=== PATIENT | male | born 1940 | race Caucasian/White ===

== ENCOUNTER → 2020-03-04 10:55 | Outpatient (BNVA) | payer OTHER, SELFPAY | PROVIDERS: PCP Physician Assistant; Visit Provider Urology | DX: Z76.89 Persons encountering health services in other specified circumstances (principal) ==

== ENCOUNTER 2020-03-23 07:28 | Day surgery (SDC) | payer OTHER, SELFPAY ==
[2020-03-20 14:18] VITALS: BMI 27.6
--- NOTE | 2020-03-20 14:32 | P.CONAN_ITS ---
Documented by User: Florencia Pyle 03/20/20 14:33 HPI - Anesthesia Eval Consult details Narrative: 79yo M for Cystoscopy PMFSH Past Medical History Medical History Cancer Elevated cholesterol Herniated disc, cervical HTN (hypertension) Sleep apnea Thyroid disease Surgical History Surgical History History of ankle surgery History of thyroid surgery Hx of colonoscopy with polypectomy Social History Social History Smoking Status: Former smoker Smoking Quit Date: 38 yrs ago Use of substances other than those prescribed or required for medical reasons: No Advance Directives: No Advance Directives Information Provided: No Advance Directives on File: No (on file with [facility]) Meds Allergies Allergy/AdvReac Type Severity Reaction Status Date / Time Sulfa (Sulfonamide Allergy Unknown UNK Unverified 12/26/19 19:46 Antibiotics) [SULFA (SULFONAMIDE ANTIBIOTICS)] sulfur Allergy Unknown Verified 11/28/19 00:00 Home Medications Medication Instructions Recorded Confirmed Type atenolol 25 mg tablet 25 mg PO DAILY 03/04/20 History diazepam 2 mg tablet 2 mg PO DAILY 03/04/20 History finasteride 5 mg tablet 5 mg PO DAILY 03/04/20 History gabapentin 100 mg capsule 100 mg PO TID 03/04/20 History hydrochlorothiazide 25 mg tablet 25 mg PO DAILY 03/04/20 History levothyroxine 50 mcg tablet 50 mcg PO DAILY 03/04/20 History lorazepam 1 mg tablet mg PO 03/04/20 History oxybutynin chloride 5 mg 5 mg PO DAILY 03/04/20 History tablet,extended release 24 hr simvastatin 40 mg tablet mg PO 03/04/20 History tamsulosin 0.4 mg capsule 0.4 mg PO DAILY 03/04/20 History testosterone 1 % (50 mg/5 gram) TOPICAL 03/04/20 History transdermal gel packet Exam Exam Date and Time: March 20, 2020 1432 Height,Weight and Vital Signs: Height 5 ft 10 in Weight 87.543 kg Assessment and Plan Assessment Anesthesia Assessment: Chart Reviewed Documented by User: Jose J Polanco 03/23/20 09:36 [facility] Past Medical History Medical History Cancer Elevated cholesterol Herniated disc, cervical HTN (hypertension) Sleep apnea Thyroid disease Surgical History Surgical History History of ankle surgery History of thyroid surgery Hx of colonoscopy with polypectomy Social History Social History Smoking Status: Former smoker Smoking Quit Date: 38 yrs ago Use of substances other than those prescribed or required for medical reasons: No Advance Directives: No Advance Directives Information Provided: No Advance Directives on File: No (on file with [facility]) Meds Allergies Allergy/AdvReac Type Severity Reaction Status Date / Time Sulfa (Sulfonamide Allergy Unknown UNK Unverified 12/26/19 19:46 Antibiotics) [SULFA (SULFONAMIDE ANTIBIOTICS)] sulfur Allergy Unknown Verified 11/28/19 00:00 Home Medications Medication Instructions Recorded Confirmed Type atenolol 25 mg tablet 25 mg PO DAILY 03/04/20 History diazepam 2 mg tablet 2 mg PO DAILY 03/04/20 History finasteride 5 mg tablet 5 mg PO DAILY 03/04/20 History gabapentin 100 mg capsule 100 mg PO TID 03/04/20 History hydrochlorothiazide 25 mg tablet 25 mg PO DAILY 03/04/20 History levothyroxine 50 mcg tablet 50 mcg PO DAILY 03/04/20 History lorazepam 1 mg tablet mg PO 03/04/20 History oxybutynin chloride 5 mg 5 mg PO DAILY 03/04/20 History tablet,extended release 24 hr simvastatin 40 mg tablet mg PO 03/04/20 History tamsulosin 0.4 mg capsule 0.4 mg PO DAILY 03/04/20 History testosterone 1 % (50 mg/5 gram) TOPICAL 03/04/20 History transdermal gel packet Exam Airway Mallampati Class: II TM Dist: >3cm Neck ROM: Full Partial: Upper Loose/Missing/Broken Teeth: No Heart: rrr+s1s2 Lungs: cta b/l Assessment and Plan Assessment Anesthesia Assessment: Anesthesia Plan Discussed, PAT Visit and Chart Reviewed Final Anesthetic Review NPO: Yes ASA Class: III Final Preanesthetic Review: No Changes in Pt Med Stat, Meds/Allgs Chart Reviewed, Consent Obtained/Reviewed and Anes Risks/Benef Reviewed Patient Risk: Intermediate Procedure Risk: Low Assessment/Block/Sedation in SS: Assess/Block/Sedation-SS Anesthetic Plan Anesthetic Plan: GA Disposition: Standard PACU
[2020-03-23] VITALS (8 sets, daily range): BP systolic 127–156; BP diastolic 69–79; PULSE 62–71; RESP 14–20; TEMP 36.6–36.9; O2SAT 99–100
[2020-03-23] MEDS: Lactated Ringers 1,000 ML 100 ML IVCONT (08:27)
--- NOTE | 2020-03-23 08:34 | MHC.SHP ---
Pre-Procedural Eval Section B Chief Complaint: Begin Prostatic Hyperplasia Details of Present Illness: Urinary tract infection, Relevant Family History (Specify if Yes): No Relevant Social History: None Present Medications: see Short Stay Collaborative assessment Medical History: Significant History Allergies: Allergies Allergy/AdvReac Type Severity Reaction Status Date / Time Sulfa (Sulfonamide Allergy Unknown UNK Unverified 12/26/19 19:46 Antibiotics) [SULFA (SULFONAMIDE ANTIBIOTICS)] sulfur Allergy Unknown Verified 11/28/19 00:00 Review of Systems Sugical H&P ROS: Negative: Constitution, Cardiovascular, Respiratory, Neurological, Psychiatric, Hem-Onc, Allergic/Immunologic, Gastrointestinal, Genitourinary, Musculoskeletal, Integumentary, Endocrine and Eyes/Ears/Nose/Throat Exam Surgical H&P Exam: Normal: HEENT, Normal: Heart, Normal: Lungs, Normal: Extremities, Normal: Abdomen, Normal: Skin and Normal: Neurological Plan Diagnosis/Plan: Unchanged Patient has been examined and remains a candidate for the planned procedure
[2020-03-23] MEDS: levoFLOXacin 500 MG TABLET PO (09:39)
--- NOTE | 2020-03-23 10:35 | PM.OP ---
Brief Operative Note Date of Service: 03/23/20 Pre-op diagnosis: Prostate calcifications Post-op diagnosis: same Procedure: TURP Implants: Fong catheter Surgeon: Da Samayoa MD Anesthesia: GLMA Estimated blood loss (mL): 0 Pathology: other (Prostate) Condition: stable Disposition: same day
--- NOTE | 2020-03-23 10:39 | P.OP_ITS ---
Operative Note Operative Note Date of Service: 03/23/20 Narrative: PreOperative Diagnosis: Recurring UTI, Post Operative Diagnosis: Prostatic calcifications Procedure: Cystoscopy, resection prostatic calcifications Surgeon: Dr Da Samayoa Anesthesia: General Indications for procedure: This is a 71-year-old male. Underwent laser prostate procedure at the beginning 2019. Subsequently developed recurrent UTI and unable to scope in office. Suggested cystoscopy in operating room with any other necessary procedures. Suspicion for prostatic calcifications following surgery Procedure: After informed consent was verified the patient was brought to the operating room and placed in a supine position. anesthesia was administered per protocol. Patient was placed in modified dorsal lithotomy position and prepped and draped in sterile fashion. Safety pause time-out was observed. Antibiotics have been given. Twenty-one Mauritian cystoscope inserted per urethra. No abnormality noted in the anterior posterior urethra. As we entered the area of the prostate there was decrease in visibility. There was reactive tissue particularly calcifications a nonhealing area on the right side of the prostatic fossa. The area was gently resected. Fulguration was performed to edematous past the prostate that had hyperemia with sources of hematuria. When this was completed the bladder was emptied. An 18 Mauritian Fong catheter was placed. Belladonna suppository placed for pain management. He was transferred in stable condition to the recovery area with Fong catheter in place Pathology: Prostate Drains: Eighteen Mauritian Fong catheter
--- NOTE | 2020-03-23 13:50 | HO.POSTANES ---
Post Anesthesia Evaluation Post Anesthesia Evaluation Vital Signs: Vital Signs Temp Pulse Resp BP Pulse Ox 03/23/20 11:59 67 20 156/79 H 100 03/23/20 11:28 98 F 66 20 146/73 H 99 03/23/20 11:11 71 20 145/77 H 100 03/23/20 10:57 66 18 142/75 H 100 03/23/20 10:53 62 16 136/76 100 03/23/20 10:48 64 16 132/69 100 03/23/20 10:43 98.1 F 63 14 127/71 100 03/23/20 07:54 98.4 F 62 16 138/70 99 Anesthesia: General Mental Status: Awake Pain Control: Satisfactory Nausea/Vomiting: None Hydration: Adequate Anesthesia-Related Issues: No Anes. Related Issues
== END 2020-03-23 12:52 | disposition home or self-care (01) ==
PROVIDERS: PCP Physician Assistant; Visit Provider Urology
PROC: 0TJB8ZZ Inspection of Bladder, Via Natural or Artificial Opening Endoscopic (ICD-10-PCS; CPT 52000; principal; 2020-03-23 09:10)
DX: N40.1 Benign prostatic hyperplasia with lower urinary tract symptoms (principal); N13.8 Other obstructive and reflux uropathy; Z87.440 Personal history of urinary (tract) infections; Z88.2 Allergy status to sulfonamides
CPT/HCPCS: 52630; 88305; J1100; J2405; J3010

== ENCOUNTER → 2020-04-17 08:49 | Outpatient (BNVA) | payer OTHER, SELFPAY | PROVIDERS: PCP Physician Assistant; Visit Provider Urology | DX: Z76.89 Persons encountering health services in other specified circumstances (principal) ==

== ENCOUNTER → 2020-09-18 08:26 | Outpatient (BNVA) | payer OTHER, SELFPAY | PROVIDERS: PCP Physician Assistant; Visit Provider Urology | DX: N40.1 Benign prostatic hyperplasia with lower urinary tract symptoms (principal); N13.8 Other obstructive and reflux uropathy; R39.15 Urgency of urination | CPT/HCPCS: 51798 ==

== ENCOUNTER 2021-06-11 09:19 | Outpatient (REF) | payer OTHER, SELFPAY ==
[2021-06-11 12:40] LABS: Prostate Specific Antigen 2.31 ng/mL (<0.05-4.0)
== END 2021-06-11 09:20 | disposition home or self-care (01) ==
LOC: HO.10HDL 09:19
PROVIDERS: PCP Internal Medicine; Visit Provider Urology
DX: N40.1 Benign prostatic hyperplasia with lower urinary tract symptoms (principal); N13.8 Other obstructive and reflux uropathy; Z12.5 Encounter for screening for malignant neoplasm of prostate
CPT/HCPCS: 36415; 84153

== ENCOUNTER → 2021-06-16 11:17 | Outpatient (BNVA) | payer OTHER, SELFPAY | PROVIDERS: PCP Physician Assistant; Visit Provider Urology | DX: N40.1 Benign prostatic hyperplasia with lower urinary tract symptoms (principal); N13.8 Other obstructive and reflux uropathy; R39.14 Feeling of incomplete bladder emptying; N39.0 Urinary tract infection, site not specified; B96.89 Other specified bacterial agents as the cause of diseases classified elsewhere | CPT/HCPCS: 51798 ==

== ENCOUNTER → 2021-12-17 08:59 | Outpatient (BNVA) | payer OTHER, SELFPAY | PROVIDERS: PCP Physician Assistant; Visit Provider Urology | DX: R39.14 Feeling of incomplete bladder emptying (principal); N40.1 Benign prostatic hyperplasia with lower urinary tract symptoms; N13.8 Other obstructive and reflux uropathy | CPT/HCPCS: 51798 ==

== ENCOUNTER 2023-03-24 14:00 | Outpatient (AMB) | payer OTHER, SELFPAY ==
--- NOTE | 2023-03-24 14:34 | A.OFFVIS_ITS ---
Intake Intake Visit Reasons: BPH- yearly follow up/pvr Intake Note: Patient is Present for Follow Up Urology Medication: finasteride, Tamsulosin Antibiotic Allergies:Sulfa Blood Thinners: None Pharmacy: PVR: 0 Compliants: Allergies Sulfa (Sulfonamide Antibiotics) [SULFA (SULFONAMIDE ANTIBIOTICS)] Allergy (Unknown, Verified 12/17/21 08:49) UNK sulfur Allergy (Unknown, Verified 12/17/21 08:49) Unknown HPI HPI Comments History of Present Illness Details Reggie is a pleasant male. He is a patient of Dr. Browne. He seen for the following urologic issues - lower urinary tract symptoms PVR 0 UA clear Feels better with current voiding parameters Minimal nocturia. Effective stream Current therapy with tamsulosin, finasteride Try coming off tamsulosin Lower urinary tract symptoms Underwent repeat laser of his prostate March 2020 for nonhealing areas History of recurring UTIs Prior procedure 2018 PSA 06/29 2.3 Prior PVR 141 Continue surveillance [facility] Medical History Cancer Elevated cholesterol Herniated disc, cervical HTN (hypertension) Sleep apnea Thyroid disease Surgical History History of ankle surgery History of thyroid surgery Hx of colonoscopy with polypectomy Review of Systems Const Denies chills and Denies fever(s) Card Reports no additional complaints and Denies syncope Resp Denies cough GI Denies abdominal pain and Denies heartburn Reports as per HPI and Denies change in libido Neuro Denies syncope Psych Denies change in libido Endo Denies change in libido Physical Exam Const General: cooperative, healthy appearing, comfortable and no acute distress Orientation/consciousness: patient oriented x3 HEENT Face and sinus: Yes normal facial exam Mouth: moist mucous membranes Neck Neck: Yes normal visual inspection, Yes full ROM and Yes trachea midline Chest Chest palpation & inspection: normal inspection of the chest Resp Effort & Inspection: normal respiratory effort, able to speak in complete sentences and no respiratory distress GI Inspection: Yes normal to inspection Back/Spine/Pelvis Cervical Spine: normal cervical lordosis Thoracic/Lumbar Spine: thoracic and lumbar spine normal to inspection Skin General skin exam: no rashes or lesions noted Neuro General: patient oriented x3, gait normal, tone normal and moves all extremities Extrem General: Yes normal to inspection and Yes capillary refill normal Office Procedures Post Void Residual Post Residual Void Post Void Residual (PVR): 0 [id number]-[id number] Void Residual by ultrasound Assessment & Plan Assessment & Plan (1) BPH w urinary obs/LUTS: Code(s): N40.1 - Benign prostatic hyperplasia with lower urinary tract symptoms; N13.8 - Other obstructive and reflux uropathy (2) Urinary urgency: Code(s): R39.15 - Urgency of urination Plan Twelve month follow-up PVR Orders: Orders AMB Post Void Residual by ultrasound Today R39.14 - Feeling of incomplete bladder emptying Patient Instructions: Imaging studies, laboratory and physical exam results were discussed and reviewed in detail. No major barriers to patient understanding were identified. An opportunity to ask questions regarding the treatment plan was provided. All questions were answered. The patient expressed understanding and agreement with the above treatment plan. The patient is aware they should contact our office by phone for worsening of their current condition or the appearance of new urologic symptoms. Compliance is encouraged with any medications and followup testing that is ordered. It is a privilege to participate in the urologic care of your patient. If you have any questions or concerns regarding treatment for the above conditions, or other urologic issues, please do not hesitate to contact me. The office telephone contact is [phone]. This note is constructed using voice recognition software. While every effort has been made to ensure accuracy door hanger errors may have been included. Yours sincerely, Dr Da Samayoa MD, N[facility] - Urology Providers of Expert, Compassionate Care for the Genitourinary System Coding Level of Care Code Est Pt Level 4 (37744) Diagnoses BPH w urinary obs/LUTS N40.1; N13.8 Urinary urgency R39.15 CPT Codes Post Residual Void - PVR CPT Code: 19112-Oscc Void Residual by ultrasound ([id number])
== END 2023-03-24 14:44 | disposition home or self-care (01) ==
PROVIDERS: Visit Provider Urology
DX: N40.1 Benign prostatic hyperplasia with lower urinary tract symptoms (principal); N13.8 Other obstructive and reflux uropathy; R39.15 Urgency of urination
CPT/HCPCS: 99213

== ENCOUNTER → 2023-03-24 14:00 | Outpatient (BNVA) | payer OTHER, SELFPAY | PROVIDERS: Visit Provider Urology | DX: N40.1 Benign prostatic hyperplasia with lower urinary tract symptoms (principal); N13.8 Other obstructive and reflux uropathy; R39.15 Urgency of urination | CPT/HCPCS: 51798 ==

== ENCOUNTER 2024-03-26 10:31 | Outpatient (AMB) | payer OTHER, SELFPAY ==
--- NOTE | 2024-03-26 10:44 | A.OFFVIS_ITS ---
Intake Visit Reasons: 1Y PVR/UA Intake Note: Patient is Present for 1Y Follow Up PVR/UA Urology Medication: finasteride Antibiotic Allergies:Sulfa Blood Thinners: None Pharmacy: PVR: [facility] PVR:[facility] Waterproof Material Folder Required: No Allergies Sulfa (Sulfonamide Antibiotics) [SULFA (SULFONAMIDE ANTIBIOTICS)] Allergy (Unknown, Verified 03/26/24 10:45) UNK sulfur Allergy (Unknown, Verified 03/26/24 10:45) Unknown HPI Comments Details: Reggie is a pleasant male. He is a patient of Dr. Browne. He seen for the following urologic issues - lower urinary tract symptoms Yearly follow-up Last year recommend coming off tamsulosin PVR remains low UA clear - specific gravity 1.030 Current therapy with tamsulosin, finasteride Cut down finasteride to Monday, Monday, Monday Lower urinary tract symptoms Underwent repeat laser of his prostate March 2020 for nonhealing areas History of recurring UTIs Prior procedure 2018 PSA 06/29 2.3 Prior PVR 141 Continue surveillance PFSH Medical History Cancer Elevated cholesterol Herniated disc, cervical HTN (hypertension) Sleep apnea Thyroid disease Surgical History History of ankle surgery History of thyroid surgery Hx of colonoscopy with polypectomy Office Procedures Post Void Residual Post Residual Void Post Void Residual (PVR): 0 24802-[id number] Void Residual by ultrasound Assessment & Plan Assessment & Plan Orders: Orders AMB Urinalysis Automated Today Z13.9 - Encounter for screening, unspecified Coding CPT Codes Post Residual Void - PVR CPT Code: 82286-Jvbz Void Residual by ultrasound ([id number])
== END 2024-03-26 11:18 | disposition home or self-care (01) ==
PROVIDERS: PCP Physician Assistant; Visit Provider Urology
DX: Z13.9 Encounter for screening, unspecified (principal)

== ENCOUNTER 2025-03-27 09:30 | Outpatient (AMB) | payer OTHER, SELFPAY ==
--- OUTSIDE RECORDS SUMMARY | 2023-11-07 04:00 | XMS_ITS ---
[facility] Organization [facility] Address [address] [place] [id number] Care Team Providers Care Box Machine Operator Name Role Phone Kendrick Awad Primary Care Provider Joselo Way Unavailable [phone] Encounters Encounter Location Date Provider Diagnosis [address] [id number] 11/07/2023 Joselo Shine Plan Of Treatment Next Appt Details Provider Name:Joselo Shine , 06/03/2025 10:30:00 AM, [address] [place] [address], [id number], Progress Notes * LEEReggie BRIDGESDOB:1940 ( 84 yo M)Acc No.[id number]:11/07/2023 Progress Note Patient: Reggie PEARLTA Provider: Karrie Shine DPM :1940 A ge:82 Y S ex:Male Date:11/07/2023 Address:[address] [place] [address] Pcp:Kendrick Awad Subjective: * Chief Complaints: * * Medical History: Objective: * Vitals: Assessment: Plan: * Treatment: * Images: * The named appointment provid er may or may not be the originator of this progress note, and it is not deemed complete until electronically signed by the appointment provider. Sign off status: Pending * Provider: Karrie Shine DPM Date: 0 11/07/2023 Generated for Sidney gomez/Marie/Steffanieitting on: 1 05/28/2024 10:55 AM EST
--- NOTE | 2025-03-27 09:37 | MHC.OFFVIS ---
Intake Visit Reasons: 1 YR PVR SET UA Intake Note: Reason for Visit: PVR Follow Up Urology Meds: Finasteride, Testosterone Blood Thinners: None Labs: None Imaging: None Last PVR: 0ml PVR:79 Allergies Sulfa (Sulfonamide Antibiotics) (SULFA (SULFONAMIDE ANTIBIOTICS)) Allergy (Unknown, Verified 03/26/24 10:45) UNK sulfur Allergy (Unknown, Verified 03/26/24 10:45) Unknown HPI Comments Details: Reggie is a pleasant male. He is a patient of Dr. Browne. He seen for the following urologic issues - lower urinary tract symptoms Yearly follow-up Current therapy with tamsulosin, finasteride Cut down finasteride to Monday, Monday, Monday Lower urinary tract symptoms Underwent repeat laser of his prostate March 2020 for nonhealing areas History of recurring UTIs Prior procedure 2018 PSA 06/29 2.3 Prior PVR 141 Continue surveillance PFSH Medical History Cancer Elevated cholesterol Herniated disc, cervical HTN (hypertension) Sleep apnea Thyroid disease Surgical History History of ankle surgery History of thyroid surgery Hx of colonoscopy with polypectomy Review of Systems Const Denies chills and Denies fever(s) Card Reports no additional complaints and Denies syncope Resp Denies cough GI Denies abdominal pain and Denies heartburn Reports as per HPI and Denies change in libido Neuro Denies syncope Psych Denies change in libido Endo Denies change in libido Physical Exam Const General: cooperative, healthy appearing, comfortable and no acute distress Orientation/consciousness: patient oriented x3 HEENT Face and sinus: Yes normal facial exam Mouth: moist mucous membranes Neck Neck: Yes normal visual inspection, Yes full ROM and Yes trachea midline Chest Chest palpation & inspection: normal inspection of the chest Resp Effort & Inspection: normal respiratory effort, able to speak in complete sentences and no respiratory distress GI Inspection: Yes normal to inspection Back/Spine/Pelvis Cervical Spine: normal cervical lordosis Thoracic/Lumbar Spine: thoracic and lumbar spine normal to inspection Skin General skin exam: no rashes or lesions noted Neuro General: patient oriented x3, gait normal, tone normal and moves all extremities Extrem General: Yes normal to inspection and Yes capillary refill normal Office Procedures Post Void Residual Post Residual Void Post Void Residual (PVR): 79 [id number]-Mcpa Void Residual by ultrasound Assessment & Plan Assessment & Plan (1) BPH w urinary obs/LUTS: Code(s): N40.1 - Benign prostatic hyperplasia with lower urinary tract symptoms; N13.8 - Other obstructive and reflux uropathy Category: Medical (2) Feeling of incomplete bladder emptying: Code(s): R39.14 - Feeling of incomplete bladder emptying Category: Medical Plan Twelve month follow-up Orders: Orders Prostate Specific Antigen 12 Months N13.8 - Other obstructive and reflux uropathy, N40.1 - Benign prostatic hyperplasia with lower urinary tract symptoms AMB Post Void Residual by ultrasound 03/27/25 N13.8 - Other obstructive and reflux uropathy, N40.1 - Benign prostatic hyperplasia with lower urinary tract symptoms Medications: Refilled finasteride 5 mg PO DAILY 90 tabs 2RF 90 days N13.8 - Other obstructive and reflux uropathy, N40.1 - Benign prostatic hyperplasia with lower urinary tract symptoms Patient Instructions: This note is constructed using voice recognition software. While every effort has been made to ensure accuracy landing gear mechanic errors may have been included. Imaging studies, laboratory and physical exam results were discussed and reviewed in detail. No major barriers to patient understanding were identified. An opportunity to ask questions regarding the treatment plan was provided. All questions were answered. The patient expressed understanding and agreement with the above treatment plan. The patient is aware they should contact our office by phone for worsening of their current condition or the appearance of new urologic symptoms. Compliance is encouraged with any medications and followup testing that is ordered. It is a privilege to participate in the urologic care of your patient. If you have any questions or concerns regarding treatment for the above conditions, or other urologic issues, please do not hesitate to contact me. The office telephone contact is [phone]. Sincerely, Dr Da Samayoa MD, [facility] - Urology Compassionate Specialist Care for the Genitourinary System Coding Level of Care Code Est Pt Level 4 (94000) Add On Problem Visit Only Diagnoses BPH w urinary obs/LUTS N40.1; N13.8 Feeling of incomplete bladder emptying R39.14 CPT Codes Post Residual Void - PVR CPT Code: 84703-Awsl Void Residual by ultrasound ([id number])
--- OUTSIDE RECORDS SUMMARY | 2025-03-27 10:54 | XMS_ITS | Encounter Summary ---
Author Organization [facility] Address [address] [facility] [address] [place] [address] Phone Care Team Providers Care Tube Cutter Operator Name Role Phone Kendrick Vargas Primary Care Provid er Kendrick Vargas Primary Care Provid er Encounter Details Date Type Department Care Team (Late st Contact Info) Description 11/04/2022 Ancillary Orders [facility], X-Ray - [address] [address] Elli Canseco PA [address] [place] [address] [email or web address] Cervicalgia; Acute pain of left shoulder Social History Tobacco Use Types Packs/Day Years Used Date Smoking Tobacco: Former Cigarettes Q uit: 1982 Smokeless Tobacco: Never Alcohol Use Standard Drinks/Week Comments Not Currently 0 (1 standard drink = 0.6 oz pur e alcohol) once a month - 1 drink Education Answer Date Recorded Are you interested in more education? Not on mariola e 08/04/2022 Are you concerned about learning? Not on file 08/04/2022 No 08/04/2022 No 08/04/2022 Digital Access Answer Date Recorded No 08/30/2022 No 08/30/2022 Reliable internet access at home? Not on file 08/30/2022 Device with a working camera? Not on file Sex and Gender Information Value Date Recorded Sex Assigned at Male 09/03/2022 10:37 AM EDT Legal Sex Male 7:26 PM EST Gender Identity Male 09/03/2022 10:37 AM EDT Sexual Orientation Choose not to disclose 2022 10:37 AM EDT documented as of this encounter Plan of Treatment Not on file documented as of this encounter Results * XR SHOULDER 2 VIEWS (LEFT) (11/04/2022 10:11 AM EDT) Anatomical Region Laterality Modality Shoulder Left Computed Radiogr aphy 11/06/2022 2:38 PM EDT Impressions 11/06/2022 2:39 PM EDT Bones demineralized. No acute fracture or dislocation. Mild glenohumeral and acromioclavicular joint degenerative change. Narrative 11/06/2022 2:39 PM EDT XR SHOULDER 2 OR MORE VIEWS (LEFT) COMPARISON: None FINDINGS: BONE: Bones demineralized. No acute fracture or dislocation. GLENOHUMERAL JOINT: Mild joint space narrowing. ACROMIOCLAVICULAR JOINT: Mild joint space narrowing with bony spurring. OTHER: No soft tissue swelling. Procedure Note Melvin Anaya MD - 11/06/2022 XR SHOULDER 2 OR MORE VIEWS (LEFT) COMPARISON: None FINDINGS: BONE: Bones demineralized. No acute fracture or dislocation. GLENOHUMERAL JOINT: Mild joint space narrowing. ACROMIOCLAVICULAR JOINT: Mild joint space narrowing with bony spurring. OTHER: No soft tissue swelling. IMPRESSION: Bones demineralized. No acute fracture or dislocation. Mild glenohumeral and acromioclavicular joint degenerative change. 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 Narrative 11/06/2022 2:35 PM EDT XR CERVICAL SPINE 2-3 VIEWS COMPARISON: MRI CERVICAL SPINE (NEURO) FOCUS WITHOUT CONTRAST FINDINGS: ALIGNMENT: Straightening of the cervical lordosis. No spondylolisthesis. VERTEBRAE: Vertebral body heights preserved. DISCS: Disc height loss and endplate sclerosis and marginal osteophytes at C4-5, C5-6, C6-7, and C7-T1. FACETS: Facet and uncovertebral arthropathy throughout the cervical spine. PARASPINAL SOFT TISSUES: Surgical clips along the right base of the neck. Left carotid artery calcification. Procedure Note Melvin Anaya MD - 11/06/2022 XR CERVICAL SPINE 2-3 VIEWS COMPARISON: MRI CERVICAL SPINE (NEURO) FOCUS WITHOUT [id number] FINDINGS: ALIGNMENT: Straightening of the cervical lordosis. No spondylolisthesis. VERTEBRAE: Vertebral body heights preserved. DISCS: Disc height loss and endplate sclerosis and marginal osteophytes atC4-5, C5-6, C6-7, and C7-T1. FACETS: Facet and uncovertebral arthropathy throughout the cervical spine. PARASPINAL SOFT TISSUES: Surgical clips along the right base of the neck.Left carotid artery calcification. 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 Elli LANGE IMG XR SPINE Final Result documented in this encounter Visit Diagnoses Diagnosis Cervicalgia Acute pain of left shoulder Cervicalgia Acute pain of left shoulder documented in this encounter Additional Health Concerns Infection Onset Date Last Indicated Resolved Time CoV-Risk 03/31/2023 03/31/2023 04/11/2023 1:23 AM EST documented as of this encounter Care Teams Tube Cutter Operator Relationship Specialty Start Date End Date Kendrick Vargas PA PCP - General 09/21/17 04/05/23 Kendrick Vargas PA [address] [place] [address] PCP - General Physician Laser Engineer 04/06/23 documented as of this encounter Additional Source Comments The information contained in this document represents components of the legal health record. It is not the complete legal health record.[facility]
--- OUTSIDE RECORDS SUMMARY | 2025-03-27 10:54 | XMS_ITS | Clinical Summary ---
Author Organization [employer] Address [address] [facility] [address] [place] [address] Care Team Providers Care Critical Care Nurse Practitioner Name Role Phone Unavailable Primary Care Provider Unavailabl e Social History Tobacco Use Types Packs/Day Years Used Date Smoking Tobacco: Never Assessed Sex and Gender Information Value Date Recorded Sex Assigned at Male 02/07/2022 10:32 AM EDT Legal Sex Male 10:32 AM EDT Gender Identity Male 02/07/2022 10:32 AM EDT Sexual Orientation Straight 02/07/2022 10 :32 AM EDT Plan of Treatment Health Maintenance Due Date Last Done Comments Depression Screening 1941 Lipid Panel 1941 Alcohol/Substance Use Screening 1953 Tobacco Screening 1953 DTaP/Tdap/Td Vaccines (1 - Tdap) 1960 Pneumococcal Vaccine: 50+ Ye ars (1 of 1 - PCV) 11/10/1991 Zoster Vaccines (1 of 2) 11/10/1991 RSV Patients and Pa tients Aged 60 years or older (1 - 1-dose 75+ series) 2016 COVID-19 Vaccine ( - 2024-2 6 season) 2024 Influenza Vaccine (#1) 2024 HIB Vaccines Aged Out No longer eligi ble based on patient's age to complete this topic HPV Vaccines Aged Out No longer eligi ble based on patient's age to complete this topic Hepatitis A Vaccines Aged Out No long er eligible based on patient's age to complete this topic Hepatitis B Vaccines Aged Out No long er eligible based on patient's age to complete this topic IPV Vaccines Aged Out No longer eligi ble based on patient's age to complete this topic Meningococcal B Vaccine Aged Out No l onger eligible based on patient's age to complete this topic Meningococcal Vaccine Aged Out No marco ying eligible based on patient's age to complete this topic RSV under 20 months Aged Out No longe r eligible based on patient's age to complete this topic Rotavirus Vaccines Aged Out No longer eligible based on patient's age to complete this topic
--- OUTSIDE RECORDS SUMMARY | 2025-03-27 10:54 | XMS_ITS | Patient Health Record ---
Author [facility] Address [address] [facility] [place] [address] Care Team Providers Care Sql Programmer Analyst Name Role Phone Kendrick Awad Primary Care Provider Joselo Way Unavailable [phone] Allergies Allergen (clinical drug ingredient) Drug/Non Drug Allergy documented on EMR Reaction Allergy Type Onset Date Status Substance with sulfonamide structure and antibacterial mechanism of action (substance) Sulfa Antibiotics Unknown Drug Allergy Active Reason For Referral No Information Medications Medication SIG (Take, Route, Frequency, Duration) Notes Start Date End Date Status Cyanocobalamin 1000 MCG 1 tablet Orally Once a day Active Testosterone Active Cholecalciferol 25 MCG (1000 UT) 1 capsule Orally Once a day Active Calcium Active Tamsulosin HCl 0.4 MG 1 capsule Orally Once a day Active Ammonium Lactate 12 % 1 application Externally to affected areas of skin to feet except for between the toes Twice a day; Duration: 30 days Active Simvastatin Active Levothyroxine Sodium 25 MCG 1 tablet in the morning on an empty stomach Orally Once a day Active hydroCHLOROthiazide 25 MG 1 tablet in th e morning Orally Once a day Active Fluticasone Propionate 50 mcg Active Finasteride 5 MG 1 tablet Orally Once a day 3 times a week Active Docusate Calcium Act zuleika Immunizations Vaccine Route Administration Date Status Comme nts Influenza Unknown 01/09/2024 Administered Influenza Unknown 02/14/2025 Administered Social History Tobacco Use: Social History Observation Description Date Details (start date - stop date) Never Smoker NA - NA Tobacco use other than smoking: Question Answer Notes Are you an other tobacco user? No Tobacco Control (Standard) Question Answer Notes Tobacco use: Nonsmoker AUDIT-C (Standard) Question Answer Notes Did you have a drink containing alcohol in the p ast year? No Points 0 Interpretation Negative Problems Problem Type SNOMED Code ICD Code Onset Dates Problem Status W/U Status Risk Notes Problem Bilateral atherosclerosis of arteries of lower limbs (disorder) ([id number] ) Atherosclerosis of hopi artery of both lower extremities, with unspecified presence of clinical manifestation (I70.203) Active confirmed Vital Signs Blood pressure diastolic 70 mm Hg 02/21/2025 Height 5 ft 10 in in 02/21/2025 Blood pressure systolic 127 mm Hg 02/21/2025 Weight 220 lbs 02/21/2025 BMI 31.56 kg/m2 02/21/2025 Procedures Procedure Date Ordered Date Performed Result Body Sit e 63426-QLOCBTD NAIL, 1-5 04/26/2024 N/A 81323-EJDK SKIN LESIONS, 2 TO 4 04/26/2024 N/A S4434-LGBNEBHJ DYSTROPHIC NAILS ANY # 04/26/2024 N/A 12819-MNWQKKP NAIL, 1-5 08/02/2024 N/A 45280-Juujxqjg Plate 08/02/2024 N/A 68924-UANW SKIN LESIONS, 2 TO 4 08/02/2024 N/A J3831-JJXVQYQV DYSTROPHIC NAILS ANY # 08/02/2024 N/A 40759-QDFTNWM NAIL, 1-5 11/05/2024 N/A 41070-ZWQC SKIN LESIONS, 2 TO 4 11/05/2024 N/A R7241-LCMFWSZC DYSTROPHIC NAILS ANY # 11/05/2024 N/A 88742-GUWJFMB NAIL, 1-5 02/21/2025 N/A 46230-OZRL SKIN LESIONS, 2 TO 4 02/21/2025 N/A G8421-VXJRWFIO DYSTROPHIC NAILS ANY # 02/21/2025 N/A Encounters Encounter [facility] Date [facility] [address] [facility]/26/2024 Joselo Shine Atherosclerosis of hopi artery of both lower extremities, with unspecified presence of clinical manifestation I70.203 ; Tinea unguium B35.1 ; Pain in right toe(s) M79.674 ; Pain in left toe(s) M79.675 and Xerosis of skin L85.[address] [address] 08/02/2024 Joselo Fátima Atherosclerosis of hopi artery of both lower extremities, with unspecified presence of clinical manifestation I70.203 ; Tinea unguium B35.1 ; Pain in right toe(s) M79.674 ; Pain in left toe(s) M79.675 and Ingrown nail L60.[address] [address] 11/05/2024 Joselo Fátima Atherosclerosis of hopi artery of both lower extremities, with unspecified presence of clinical manifestation I70.203 ; Tinea unguium B35.1 ; Pain in right toe(s) M79.674 and Pain in left toe(s) M79.[address] [address] 02/21/2025 Joselo Fátima Atherosclerosis of hopi artery of both lower extremities, with unspecified presence of clinical manifestation I70.203 ; Tinea unguium B35.1 ; Pain in right toe(s) M79.674 and Pain in left toe(s) M79.675 Assessments Encounter Date Diagnosis (ICD Code) Assessment Notes Treatment Notes Treatment Clinical Notes Section Notes 04/26/2024 Tinea unguium (ICD-10 - B35.1) 04/26/2024 Atherosclerosis of hopi artery of both lower extremities, with unspecified presence of clinical manifestation (ICD-10 - I70.203) 08/02/2024 Tinea unguium (ICD-10 - B35.1) 08/02/2024 Atherosclerosis of hopi artery of both lower extremities, with unspecified presence of clinical manifestation (ICD-10 - I70.203) 11/05/2024 Tinea unguium (ICD-10 - B35.1) 11/05/2024 Atherosclerosis of hopi artery of both lower extremities, with unspecified presence of clinical manifestation (ICD-10 - I70.203) 02/21/2025 Tinea unguium (ICD-10 - B35.1) 02/21/2025 Atherosclerosis of hopi artery of both lower extremities, with unspecified presence of clinical manifestation (ICD-10 - I70.203) 11/05/2024 Pain in right toe(s) (ICD-10 - M79.674) 02/21/2025 Pain in right toe(s) (ICD-10 - M79.674) 08/02/2024 Pain in right toe(s) (ICD-10 - M79.674) 04/26/2024 Pain in right toe(s) (ICD-10 - M79.674) 04/26/2024 Pain in left toe(s) (ICD-10 - M79.675) 08/02/2024 Pain in left toe(s) (ICD-10 - M79.675) 11/05/2024 Pain in left toe(s) (ICD-10 - M79.675) 02/21/2025 Pain in left toe(s) (ICD-10 - M79.675) 08/02/2024 Ingrown nail (ICD-10 - L60.0) 04/26/2024 Xerosis of skin (ICD-10 - L85.3) 04/26/2024 Other 08/02/2024 Other 11/05/2024 Other 02/21/2025 Other Plan Of Treatment Pending Test Test Name Order Date 27484-FYGQGZL NAIL, 1-06/02/2023 35606-YQFDXVO NAIL, -08/22/2023 18493-JKAISCU NAIL, 1-5 11/10/2023 54130-KHSADMM NAIL, 1-5 01/30/2024 11066-ZNVEDCS NAIL, 1-5 04/26/2024 66090-LXPMLLO NAIL, 1-5 08/02/2024 49068-VIPFFED NAIL, 1-5 11/05/2024 98376-ESCTLZO NAIL, 1-5 02/21/2025 45977-Apaugoku Plate 08/02/2024 14964 I&D ABSCESS- SIMPLE,SINGLE 024 69701-PJSA SKIN LESIONS, 2 TO 4 08/22/19 24 69218-WHHK SKIN LESIONS, 2 TO 4 11/10/19 24 90654-PPKZ SKIN LESIONS, 2 TO 4 06/02/19 24 26023-RQIG SKIN LESIONS, 2 TO 4 08/03/19 25 86381-UHGV SKIN LESIONS, 2 TO 4 04/26/19 26624-JLHV SKIN LESIONS, 2 TO 4 01/30/20 05988-AZCC SKIN LESIONS, 2 TO 4 02/22/20 43388-NWWS SKIN LESIONS, 2 TO 4 11/06/19 E4616-GLIECFIX DYSTROPHIC NAILS ANY # T6718-UGSIPSXZ DYSTROPHIC NAILS ANY # I1397-ETQLGNUS DYSTROPHIC NAILS ANY # Z3041-KEIMLOKS DYSTROPHIC NAILS ANY # C1848-GKABSVPU DYSTROPHIC NAILS ANY # T5681-YRNIWUCK DYSTROPHIC NAILS ANY # B4254-NQUIUNPC DYSTROPHIC NAILS ANY # U1484-FNNFQCVK DYSTROPHIC NAILS ANY # Next Appt Details Provider Name:Joselo Shine , 06/03/2025 10:30:00 AM, [address] [place] [address], [phone], Insurance Providers Payer Name Payer Address Payer Phone Subscriber Number Group Number Insured Name Patient Relationship to Insured Coverage Start Date Coverage End Date [employer] [address] [place] [address] [phone] [id number] Reggie Schultz Self - patient is the insured Medical (General) History Medical History History ICD Code Cancer High blood pressure thyroid Measles Chicken pox Surgical History Surgery Date(Month/Year) 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
--- OUTSIDE RECORDS SUMMARY | 2025-03-27 10:55 | XMS_ITS | Encounter Summary ---
Author Organization [facility] Address [address] [facility] [address] [place] [address] Phone Care Team Providers Care City Planner Name Role Phone Kendrick Vargas Primary Care Provid er Kendrick Vargas Primary Care Provid er Reason for Referral * MRI/CAT Scan - Closed Specialty Diagnoses / Procedures Referred By Contac t Referred To Contact Radiology Diagnoses Derangement of other medial meniscus due to old tear or injury, left knee Procedures MRI Knee (Left) CHG MRI LOWER EXTREM JT, W/O CONTRAST CHG MRI, JOINT OF LEG W/CONTRAST CHG MRI, JOINT OF LEG. Kendrick Fink PA Phone: tel: fax: Referral ID Status Reason Start Date Expiration Date Visits Re quested Visits Authorized [id number] Closed 01/07/2021 03/08/2021 1 1 Encounter Details Date Type Department Care Team (Latest Contact Info) Description 01/07/2021 Transcribe Orders Virtual Department [address] [place] [address] Kendrick Vargas PA [address] [place] [address] Derangement of other medial meniscus due to old tear or injury, left knee (Primary Dx) Social History Tobacco Use Types Packs/Day Years [...] documented as of this encounter Results * MRI KNEE WITHOUT CONTRAST (LEFT) (01/27/2021 8:52 AM EDT) Anatomical Region Laterality Modality Knee Left Magnetic Resonan ce 01/27/2021 8:58 AM EDT Impressions 01/27/2021 9:09 AM EDT 1. Oblique tear of the body and posterior horn of the medial meniscus involving the inferior surface and apex. 2. Findings compatible with a grade 1 MCL sprain. 3. Chondromalacia patella. Early degenerative changes at the medial and lateral compartments. Narrative 01/27/2021 9:09 AM EDT HISTORY: Medial knee pain. COMPARISON: None. TECHNIQUE: Exam performed on a 1.5 [employer] high-field MRI scanner. Axial proton density with fat suppression, coronal proton density and proton density with fat suppression, sagittal T1, oblique sagittal proton density and proton density with fat suppression parallel to the plane of the ACL sequences were obtained. FINDINGS: Ligaments: The cruciate ligaments are intact. The MCL is intact. Mild edema adjacent to the MCL. The components of the lateral collateral ligamentous complex are intact. Menisci: Moderate size oblique tear of the body and posterior horn of the medial meniscus involving the inferior articular surface and apex. The lateral meniscus is intact. Tendons: Extensor tendon is intact. Cartilage: Mild loss of articular cartilage at the medial compartment and minimally at the lateral compartment. Small focal area of increased signal within the patella cartilage superior laterally. Bones: Edema within the subchondral region of the patella laterally. Small amount of cystic change within the proximal tibia adjacent to the base of the medial tibial spine. No evidence of fractures. Soft tissues: No evidence of soft tissue masses or focal fluid collections. Mild edema within the prepatellar and pretibial soft tissues. Joint: Small-moderate size joint effusion. Procedure Note Mateusz Fuentes MD - 01/27/2021 HISTORY: Medial knee pain. COMPARISON: None. TECHNIQUE: Exam performed on a 1.5 Aviva high-field MRI scanner. Axialproton density with fat suppression, coronal proton density and protondensity with fat suppression, sagittal T1, oblique sagittal proton densityand proton density with fat suppression parallel to the plane of the ACLsequences were obtained. FINDINGS: Ligaments: The cruciate ligaments are intact. The MCL is intact. Mildedema adjacent to the MCL. The components of the lateral collateralligamentous complex are intact. Menisci: Moderate size oblique tear of the body and posterior horn of themedial meniscus involving the inferior articular surface and apex. Thelateral meniscus is intact. Tendons: Extensor tendon is intact. Cartilage: Mild loss of articular cartilage at the medial compartment andminimally at the lateral compartment. Small focal area of increased signalwithin the patella cartilage superior laterally. Bones: Edema within the subchondral region of the patella laterally. Smallamount of cystic change within the proximal tibia adjacent to the base ofthe medial tibial spine. No evidence of fractures. Soft tissues: No evidence of soft tissue masses or focal fluidcollections. Mild edema within the prepatellar and pretibial softtissues. Joint: Small-moderate size joint effusion. IMPRESSION: 1. Oblique tear of the body and posterior horn of the medial meniscusinvolving the inferior surface and apex. 2. Findings compatible with a grade 1 MCL sprain. 3. Chondromalacia patella. Early degenerative changes at the medial andlateral compartments. 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 tear or injury, left knee- Primary Derangement of other medial meniscus due to old tear or injury, left knee documented in this encounter Additional Health Concerns Infection Onset Date Last Indicated Resolved Time CoV-Risk 03/31/2023 03/31/2023 04/11/2023 1:23 AM EST documented as of this encounter Care Teams City Planner Relationship Specialty Start Date End Date Kendrick Vargas PA PCP - General 09/21/17 04/05/23 Kendrick Vargas PA [address] [place] [address] PCP - General Physician Web Press Jogger 04/06/23 documented as of this encounter Additional Source Comments The information contained in this document represents components of the legal health record. It is not the complete legal health record.[facility]
--- OUTSIDE RECORDS SUMMARY | 2025-03-27 10:55 | XMS_ITS | Clinical Summary ---
Author Organization [facility] Address [address] [place] [address] [place] [phone] Phone Care Team Providers Care Clinical Psychologist Name Role Phone Kendrick Vargas Primary Care Provid er Allergies Active Allergy Reactions Criticality Noted Date Comments Doxepin 08/11/2010 Other reaction(s): Edema of the tongue Sulfa (Sulfonamide Antibiotics) Unknown 04/30/2020 Medications hydroCHLOROthiaz micheline (HYDRODIURIL) 25 MG tablet Take 1 tablet by mouth daily. 12/25/2020 Active simvastatin (ZOCOR) 40 MG tablet Take 1 tablet by mouth daily. 12/25/2020 Active testosterone (ANDROGEL) 1 % (50 mg/5 gram) transdermal gel packet Place 1 packet onto the skin daily. 01/11/2021 Active levothyroxine (SYNTHROID, LEVOTHROID) 75 MCG tablet 75 mcg. 10/28/2021 Active cholecalciferol (VITAMIN D3) 25 MCG (1,000 unit) tablet 25 mcg. 10/14/2021 Active cyanocobalamin, vitamin B-12, 1000 MCG tablet 1,000 mcg. 10/28/2021 Ac tive docusate sodium (COLACE) 100 MG capsule 200 mg. 10/23/2021 Active fluticasone propionate (FLONASE) 50 mcg/actuation nasal spray 07/02/2021 Active calcium citrate (CALCITRATE) 950 mg (200 mg elemental) tablet 1,000 mg. 04/18/2022 Active finasteride (PROSCAR) 5 mg tablet 5 mg. 04/29/2022 Active tamsulosin (FLOMAX) 0.4 mg Cap Take 1 capsule by mouth daily. 03/30/2022 Active naproxen sodium (ALEVE) 220 MG tablet Take 220 mg by mouth 2 (two) times a day with meals. Active diclofenac sodium (VOLTAREN) 50 MG EC tablet Take 1 tablet (50 mg total) by mouth 2 (two) times a day. 30 tablet 1 09/08/2022 Active diazePAM (VALIUM) 2 MG tablet 01/03/2023 Active Active Problems No known active problems Social History Tobacco Use Types Packs/Day Years Used Date Smoking Tobacco: Former Cigarettes Q uit: 1982 Smokeless Tobacco: Never Tobacco Cessation:Counseling Given: Not Answered Alcohol Use Standard Drinks/Week Comments Not Currently [...] with a working camera? Not on file Intimate Partner Violence Answer Date R ecorded Are you denied basic needs s uch as food, clothing, or medical care? No 01/17/2023 In the past 12 months have y ou been in a relationship with a person who hurts, threatens, or tries to control you? No 01/17/2023 Are you denied basic needs s uch as food, clothing, or medical care? No 01/17/2023 In the past 12 months have y ou been in a relationship with a person who hurts, threatens, or tries to control you? No 01/17/2023 Sex and Gender Information Value Date Recorded Sex Assigned at Male 09/03/2022 10:37 AM EDT Legal Sex Male 7:26 PM EST Gender Identity Male 09/03/2022 10:37 AM EDT Sexual Orientation Choose not to disclose 2022 10:37 AM EDT Last Filed Vital Signs Vital Sign Reading Time Taken Comments Blood Pressure 115/75 03/31/2023 3:16 PM EST Pulse 80 03/31/2023 3:16 PM EST Temperature 37.1 C (98.8 F) 03/31/2023 3:16 PM EST Respiratory Rate 19 03/31/2023 3:16 PM EST Oxygen Saturation 96% 03/31/2023 3:16 PM EST Inhaled Oxygen Concentration - - Weight 97.5 kg (215 lb) 03/31/2023 3:16 PM EST Height 177.8 cm (5' 10 ) 03/31/2023 3:16 PM EST Body Mass Index 30.85 03/31/2023 3:16 PM EST Plan of Treatment Health Maintenance Due Date Last Done Comments Adult Td,Tdap Booster 1941 POTASSIUM LEVEL 1941 TSH LEVEL 1941 DEPRESSION SCREENING 1953 PNEUMOCOCCAL VACCINES (50+ years) (2 of 2 - PCV20 or PCV21) 12/24/2015 12/23/2014 RSV VACCINE (1 - 1-dose 75+ series) 2016 INFLUENZA VACCINE (#1) 2024 , 12/13/2019, 01/02/2018, Additional history exists COVID-19 VACCINE (2024- season) 2024 09/01/2021, 02/26/2021, 06/06/2020, Additional history exists ZOSTER VACCINES Completed 01/02/2018, 07/06/2017 HEPATITIS A VACCINES Aged Out No long er eligible based on patient's age to complete this topic HIB VACCINES Aged Out No longer eligi ble based on patient's age to complete this topic MENINGOCOCCAL VACCINES (ACWY) Aged Out No longer eligible based on patient's age to complete this topic MENINGOCOCCAL VACCINES (B) Aged Out N o longer eligible based on patient's age to complete this topic Medical Devices Not on file Insurance [facility] [place] [address] [address] [place] [address] [place] [address] [place] [address] [place] [address] [facility] Care Teams Clinical Psychologist Relationship Specialty Start Date End Date Kendrick Vargas PA [address] [place] [address] PCP - General Physician Training And Development Project Leader 04/06/23 Additional Source Comments The information contained in this document represents components of the legal health record. It is not the complete legal health record.[facility]
--- OUTSIDE RECORDS SUMMARY | 2025-03-27 10:55 | XMS_ITS | Encounter Summary ---
Author Organization [facility] Address [address] [facility] [address] [place] [phone] Phone Care Team Providers Care Front Services Agent Name Role Phone Kendrick Vargas Primary Care Provid er Kendrick Vargas Primary Care Provid er Encounter Details Date Type Department Care Team (Latest Contact Info) Description 01/06/2022 Transcribe Orders [facility] [address] [place] [address] Vicenta Patel PA-C [address], [address] [place] [address] [email or web address] Rectal bleeding (Primary Dx) Social History Tobacco Use Types Packs/Day Years Used Date Smoking Tobacco: Never Smokeless Tobacco: Never Sex and Gender Information Value Date Recorded Sex Assigned at Male 09/03/2022 10:37 AM EDT Legal Sex Male 7:26 PM EST Gender Identity Male 09/03/2022 10:37 AM EDT Sexual Orientation Choose not to disclose 2022 10:37 AM EDT documented as of this encounter Plan of Treatment Not on file documented as of this encounter Results * CBC (01/06/2022 10:31 AM EDT) WBC 7.80 4.00 - 11.00 K/uL [facility] RBC 4.66 3.90 - 5.69 M/uL [facility] HGB 14.1 12.4 - 17.3 g/dL [facility] HCT 43.7 37.0 - 51.0 % [facility] PLT 183 140 - 430 K/uL [facility] MCV 93.8 78.0 - 97.0 fL [facility] MCH 30.3 25.0 - 33.0 pg [facility] MCHC 32.3 32.0 - 36.0 g/dL [facility] RDW 12.6 11.0 - 15.0 % [facility] MPV 11.4 8.4 - 12.8 fl [facility] Blood 01/06/2022 10:3 1 AM EDT 01/06/2022 10:36 AM EDT us Vicenta Patel PA-C LAB BLOOD BKR ORDERABLES Final Result [facility] [address] [place] [address] documented in this encounter Visit Diagnoses Diagnosis Rectal bleeding- Primary Hemorrhage of rectum and anus documented in this encounter Additional Health Concerns Infection Onset Date Last Indicated Resolved Time CoV-Risk 03/31/2023 03/31/2023 04/11/2023 1:23 AM EST documented as of this encounter Care Teams Front Services Agent Relationship Specialty Start Date End Date Kendrick Vargas PA PCP - General 09/21/17 04/05/23 Kendrick Vargas PA [address] [place] [address] PCP - General Physician Drug Enforcement Agent 04/06/23 documented as of this encounter Additional Source Comments The information contained in this document represents components of the legal health record. It is not the complete legal health record.[facility]
--- OUTSIDE RECORDS SUMMARY | 2025-03-27 10:55 | XMS_ITS | Encounter Summary ---
Author Organization [facility] Address [address] [facility] [address] [place] [address] Phone Care Team Providers Care Technical Applications Specialist Name Role Phone Kendrick Vargas Primary Care Provid er Kendrick Vargas Primary Care Provid er Encounter Details Date Type Department Care Team ([facility] st Contact Info) Description 09/13/2022 Ancillary Orders [facility] [address] [place] [address] Shayla Neal MD [address] [place] [address] [facility] Medicine, [place] [address] [email or web address] Social History Tobacco Use Types Packs/Day Years [...] on file documented as of this encounter Visit Diagnoses Not on filedocumented in this encounter Additional Health Concerns Infection Onset Date Last Indicated Resolved Time CoV-Risk 03/31/2023 03/31/2023 04/11/2023 1:23 AM EST documented as of this encounter Care Teams Technical Applications Specialist Relationship Specialty Start Date End Date Kendrick Vargas PA PCP - General 09/21/17 04/05/23 Kendrick Vargas PA [address] [place] [phone] PCP - General Physician Soda Dry House Operator 04/06/23 documented as of this encounter Additional Source Comments The information contained in this document represents components of the legal health record. It is not the complete legal health record.[facility]
--- OUTSIDE RECORDS SUMMARY | 2025-03-27 10:55 | XMS_ITS | Encounter Summary ---
Author Organization [facility] Address [address] [facility] [address] [place] [phone] Phone Care Team Providers Care Anesthetic Assistant Name Role Phone Kendrick Vargas Primary Care Provid er Kendrick Vargas Primary Care Provid er Encounter Details Date Type Department Care Team (Late st Contact Info) Description 12/19/2022 Procedure Pass [address] [place] [address] Social History Tobacco Use Types Packs/Day Years [...] documented as of this encounter Care Teams Anesthetic Assistant Relationship Specialty Start Date End Date Kendrick Vargas PA PCP - General 09/21/17 04/05/23 Kendrick Vargas PA [address] [place] [phone] PCP - General Physician Coat Presser 04/06/23 documented as of this encounter Additional Source Comments The information contained in this document represents components of the legal health record. It is not the complete legal health record.[facility]
--- OUTSIDE RECORDS SUMMARY | 2025-03-27 10:55 | XMS_ITS | Encounter Summary ---
Author Organization [employer] Address [address] [facility] 7[address] [place] [address] Care Team Providers Care Development Coordinator Name Role Phone Unavailable Primary Care Provider Unavailabl e Encounter Details Date Type Department Care Team (Latest Contact Info) Description 05/23/2019 Abstract [facility] CONVERSIONS Dental, Provider, DDS Social History Tobacco Use Types Packs/Day Years Used Date Smoking Tobacco: Never Assessed Sex and Gender Information Value Date Recorded Sex Assigned at Male 02/07/2022 10:32 AM EDT Legal Sex Male 10:32 AM EDT Gender Identity Male 02/07/2022 10:32 AM EDT Sexual Orientation Straight 02/07/2022 10 :32 AM EDT documented as of this encounter Plan of Treatment Not on file documented as of this encounter Visit Diagnoses Not on filedocumented in this encounter
--- OUTSIDE RECORDS SUMMARY | 2025-03-27 10:55 | XMS_ITS | Encounter Summary ---
Author Organization [facility] Address [address] [facility] [address] [place] [address] Phone Care Team Providers Care Nuclear Supervising Operator Name Role Phone Kendrick Vargas Primary Care Provid er Kendrick Vargas Primary Care Provid er Encounter Details Date Type Department Care Team (Latest Contact Info) Description 09/13/2022 Ancillary Orders [address] [address] Shayla Neal MD [address] [place] [address] [facility], [place], [place] [id number] [email or web address] Osteoarthritis of left hip, unspecified osteoarthritis type Social History Tobacco Use Types Packs/Day Years [...] as of this encounter Plan of Treatment Pending Results Name Type Priority Associated Diagnoses Date /Time FL Guidance Needle Placement Non-Spine Imaging Routine Osteoarthritis of left hip, unspecified osteoarthritis type 09/20/2022 10:40 AM EDT Scheduled Orders Name Type Priority Associated Diagnoses Orde r Schedule FL Guidance Needle Placement Non-Spine Imaging Routine Osteoarthritis of left hip, unspecified osteoarthritis type 1 Occurrences starting 09/13/2022 until 12/14/2022 documented as of this encounter Visit Diagnoses Diagnosis Osteoarthritis of left hip, unspecified osteoarthritis type documented in this encounter Additional Health Concerns Infection Onset Date Last Indicated Resolved Time CoV-Risk 03/31/2023 03/31/2023 04/11/2023 1:23 AM EST documented as of this encounter Care Teams Nuclear Supervising Operator Relationship Specialty Start Date End Date Kendrick Vargas PA PCP - General 09/21/17 04/05/23 Kendrick Vargas PA [address] [place] [phone] PCP - General Physician Community Organization Worker 04/06/23 documented as of this encounter Additional Source Comments The information contained in this document represents components of the legal health record. It is not the complete legal health record.[facility]
--- OUTSIDE RECORDS SUMMARY | 2025-03-27 10:55 | XMS_ITS | Encounter Summary ---
Author Organization [email or web address] Address [address] [facility] 7t [place] [address] Care Team Providers Care Canadian Bacon Tier Name Role Phone Unavailable Primary Care Provider Unavailabl e Encounter Details Date Type Department Care Team (Latest Contact Info) Description 04/20/2018 Abstract [facility] CONVERSIONS Dental, Provider, DDS Social History [...]
--- OUTSIDE RECORDS SUMMARY | 2025-03-27 10:55 | XMS_ITS | Encounter Summary ---
Author Organization [facility] Address [address] [facility] [address] [place] [address] Phone Care Team Providers Care Senior Associate Name Role Phone Kendrick Vargas Primary Care Provid er Kendrick Vargas Primary Care Provid er Encounter Details Date Type Department Care Team (Late st Contact Info) Description 01/17/2023 Procedure Pass [facility] [address] [place] [address] Social History Tobacco Use Types Packs/Day Years [...] documented as of this encounter Care Teams Senior Associate Relationship Specialty Start Date End Date Kendrick Vargas PA PCP - General 09/21/17 04/05/23 Kendrick Vargas PA [address] [place] [address] PCP - General Physician Pig Machine Crane Operator 04/06/23 documented as of this encounter Additional Source Comments The information contained in this document represents components of the legal health record. It is not the complete legal health record.[facility]
--- OUTSIDE RECORDS SUMMARY | 2025-03-27 10:56 | XMS_ITS | Encounter Summary ---
Author Organization [facility] Address [address] [facility] [address] [place] [address] Phone Care Team Providers Care Plumber Helper Name Role Phone Kendrick Vargas Primary Care Provid er Kendrick Vargas Primary Care Provid er Reason for Referral * MRI/CAT Scan - Closed Specialty Diagnoses / Procedures Referred By Panda zheng Referred To Contact Radiology Diagnoses Radiculopathy, cervical region Procedures MRI Cervical Spine CHG MRI, CERV SPINE CHG MRI, CERV SPINE COMBO CHG MRI, CERV SPINE CONTRAST Elli Canseco PA Phone: tel: fax: [email or web address] Referral ID Status Reason Start Date Expiration Date Visits Re quested Visits Authorized [id number] Closed 12/19/2022 05/03/2023 1 1 Encounter Details Date Type Department Care Team (Latest Contact Info) Description 12/19/2022 Transcribe Orders Virtual Department [address] [place] [address] Elli Canseco PA [address] [place] [address] [email or web address] Radiculopathy, cervical region (Primary Dx) Social History Tobacco Use Types Packs/Day Years Used Date Smoking Tobacco: Former Cigarettes Q uit: 1981 Smokeless Tobacco: Never Alcohol Use Standard Drinks/Week [...] as of this encounter Results * MRI CERVICAL SPINE (BONE) WITHOUT CONTRAST (01/08/2023 11:53 AM EDT) Anatomical Region Laterality Modality C-spine Magnetic Resonan ce 01/13/2023 10:5 4 AM EDT Impressions 01/13/2023 11:56 AM EDT Overall, no significant changes compared with 04/11/2019. A small left paracentral disc protrusion at C7-T1 has essentially resolved. Narrative 01/13/2023 11:56 AM EDT MRI CERVICAL SPINE (BONE) WITHOUT CONTRAST HISTORY: Left shoulder pain, paresthesias from left ear to left shoulder, periodic numbness. TECHNIQUE: MRI CERVICAL SPINE (BONE) WITHOUT CONTRAST Multi-sequence, multi-planar MRI of the cervical spine was performed without intravenous contrast. COMPARISON: MRI cervical spine 04/11/2019. FINDINGS: CERVICAL SPINE: Alignment and Vertebrae: No subluxation. No evidence of fracture. Marrow: T1, T2 hyperintense lesions within the bodies of C6, T1 and T2 are stable. Discs and Endplates: Degenerative disc and endplate changes at C5-C6 and C6-C7 and, to a lesser extent C4-C5 are stable. Spinal Cord: No evidence of spinal cord lesions. Soft Tissue: No prevertebral edema or soft tissue masses. Findings by level: C2-C3: No significant abnormalities have developed. C3-C4: Tiny broad-based disc-osteophyte complex. No central canal stenosis. Moderate neuroforaminal narrowing on the left appears similar. Mild neuroforaminal narrowing on the right. C4-C5: Broad-based disc protrusion associated with small osteophytes. The appearance is stable. Mild-moderate central canal stenosis and mild flattening of the spinal cord is stable. Stable moderate-severe bilateral neuroforaminal narrowing. C5-C6: Small broad-based disc-osteophyte complex no central canal stenosis has developed. Moderate-severe bilateral neuroforaminal narrowing is stable. C6-C7: Disc-osteophyte complex more prominent to the right of midline is stable. Stable mild narrowing of the central canal. No central canal stenosis. Moderate bilateral neuroforaminal narrowing is stable. C7-T1: Small left paracentral disc protrusion appears to have essentially resolved. No central canal stenosis or significant neuroforaminal narrowing. Procedure Note Mateusz Fuentes MD - 01/13/2023 MRI CERVICAL SPINE (BONE) WITHOUT CONTRAST HISTORY: Left shoulder pain, paresthesias from left ear to left shoulder,periodic numbness. TECHNIQUE: MRI CERVICAL SPINE (BONE) WITHOUT CONTRAST Multi-sequence, multi-planar MRI of the cervical spine was performedwithout intravenous contrast. COMPARISON: MRI cervical spine 04/11/2019. FINDINGS: CERVICAL SPINE: Alignment and Vertebrae: No subluxation. No evidence of fracture. Marrow: T1, T2 hyperintense lesions within the bodies of C6, T1 and T2 arestable. Discs and Endplates: Degenerative disc and endplate changes at C5-C6 andC6-C7 and, to a lesser extent C4-C5 are stable. Spinal Cord: No evidence of spinal cord lesions. Soft Tissue: No prevertebral edema or soft tissue masses. Findings by level: C2-C3: No significant abnormalities have developed. C3-C4: Tiny broad-based disc-osteophyte complex. No central canalstenosis. Moderate neuroforaminal narrowing on the left appears similar.Mild neuroforaminal narrowing on the right. C4-C5: Broad-based disc protrusion associated with small osteophytes. Theappearance is stable. Mild-moderate central canal stenosis and mildflattening of the spinal cord is stable. Stable moderate-severe bilateralneuroforaminal narrowing. C5-C6: Small broad-based disc-osteophyte complex no central canal stenosishas developed. Moderate-severe bilateral neuroforaminal narrowing isstable. C6-C7: Disc-osteophyte complex more prominent to the right of midline isstable. Stable mild narrowing of the central canal. No central canalstenosis. Moderate bilateral neuroforaminal narrowing is stable. C7-T1: Small left paracentral disc protrusion appears to have essentiallyresolved. No central canal stenosis or significant neuroforaminalnarrowing. IMPRESSION: Overall, no significant changes compared with 04/11/2019. A small leftparacentral disc protrusion at C7-T1 has essentially resolved. Elli LANGE IMG MR XSPECIALTY Final Resul t documented in this encounter Visit Diagnoses Diagnosis Radiculopathy, cervical region- Primary Brachial neuritis or radiculitis nos Radiculopathy, cervical region Brachial neuritis or radiculitis nos documented in this encounter Additional Health Concerns Infection Onset Date Last Indicated Resolved Time CoV-Risk 03/31/2023 03/31/2023 04/11/2023 1:23 AM EST documented as of this encounter Care Teams Plumber Helper Relationship Specialty Start Date End Date Kendrick Vargas PA PCP - General 09/21/17 04/05/23 Kendrick Vargas PA [address] [place] [address] PCP - General Physician Gas Golf Cart Repairer 04/06/23 documented as of this encounter Additional Source Comments The information contained in this document represents components of the legal health record. It is not the complete legal health record.[facility]
--- OUTSIDE RECORDS SUMMARY | 2025-03-27 10:56 | XMS_ITS | Encounter Summary ---
Author Organization [facility] Address [address] [facility] [address] [place] [address] Phone Care Team Providers Care Medical Assistant Cardiology Name Role Phone Kendrick Vargas Primary Care Provid er Kendrick Vargas Primary Care Provid er Encounter Details Date Type Department Care Team (Late st Contact Info) Description 09/01/2022 Procedure Pass [facility] Endoscopy Admitting Dept Virtual Department [address] [place] [address] Social History Tobacco Use Types Packs/Day Years [...] AM EDT documented as of this encounter Functional Status * Calculated C-SSRS Risk Score (Lifetime/Recent) Answer Date of Assessment Author No Risk Indicated 09/03/2022 1:08 PM EDT Roya Mireles RN * [place] Suicide Severity Rating Scale (Screener/Recent Self-Report) Question Answer Date of Assessment Author 1. Wish to be (Past 1 Month) No 023 1:08 PM EDT Roya Mireles RN 2. Non-Specific Active Suici zhang Thoughts (Past 1 Month) No 09/03/2022 1:08 PM EDT Selena Mireles RN 6. Suicidal Behavior (Lifetime) No 3 1:08 PM EDT Roya Mireles RN documented as of this encounter Plan of Treatment Not on file documented as of this encounter Visit Diagnoses Not on filedocumented in this encounter Additional Health Concerns Infection Onset Date Last Indicated Resolved Time CoV-Risk 03/31/2023 03/31/2023 04/11/2023 1:23 AM EST documented as of this encounter Care Teams Medical Assistant Cardiology Relationship Specialty Start Date End Date Kendrick Vargas PA PCP - General 09/21/17 04/05/23 Kendrick Vargas PA [address] [place] [address] PCP - General Physician Mini Lab Operator 04/06/23 documented as of this encounter Additional Source Comments The information contained in this document represents components of the legal health record. It is not the complete legal health record.[facility]
--- OUTSIDE RECORDS SUMMARY | 2025-03-27 10:56 | XMS_ITS | Encounter Summary ---
Author Organization [facility] Address [address] [facility] [address] [place] [phone] Phone Care Team Providers Care College Associate Name Role Phone Kendrick Vargas Primary Care Provid er Kendrick Vargas Primary Care Provid er Reason for Referral * MRI/CAT Scan - Closed Specialty Diagnoses / Procedures Referred By Panda zheng Referred To Contact Radiology Diagnoses Dorsalgia Procedures MRI Cervical Spine Kendrick Vargas PA Phone: tel: fax: Referral ID Status Reason Start Date Expiration Date Visits Re quested Visits Authorized [id number] Closed 03/25/2019 06/03/2019 1 1 Encounter Details Date Type Department Care Team (Latest Contact Info) Description 04/04/2019 Transcribe Orders Virtual Department [address] [place] [address] Kendrick Vargas PA [address] [place] [address] Dorsalgia (Primary Dx) Social History Tobacco Use Types [...] this encounter Results * MRI CERVICAL SPINE (NEURO) FOCUS WITHOUT CONTRAST (04/11/2019 1:29 PM EST) Anatomical Region Laterality Modality C-spine Magnetic Resonan ce 04/11/2019 3:20 PM EST Impressions 04/11/2019 3:45 PM EST 1. Mild-moderate central canal stenosis at C4-C5. 2. Multilevel neural foraminal narrowing entirely due to osteophytes. This is moderate-severe bilaterally at C4-C5 and C5-C6 on the left. 3. Small left paracentral disc protrusion at C7-T1. 4. Degenerative disc and endplate changes, most prominent at C6-C7. 5. Multiple lesions within the vertebral bodies, likely hemangiomas. POS [id number] Narrative 04/11/2019 3:45 PM EST HISTORY:. Pain and paresthesias in right side of neck and arm. COMPARISON: None. TECHNIQUE: Exam performed on a 1.5 Aviva high-field MRI scanner. Sagittal T1, T2 and STIR, axial T2* gradient echo and 3-D bright fluid sequences were obtained. FINDINGS: Cervicomedullary junction: No significant abnormalities. Spinal cord: No findings suspicious for spinal cord lesions. Spinal cord normal in configuration. C2-C3: No significant abnormalities. C3-C4: Small broad-based disc-osteophyte complex. No central canal stenosis. Moderate narrowing of the left neuroforamen by uncovertebral joint osteophytes and mild facet arthropathy. C4-C5: Mild disc space narrowing and degenerative endplate changes. Broad-based disc protrusion associated with small osteophytes. Bilateral thickening of the ligamentum flavum. Mild flattening of the spinal cord. Mild-moderate central canal stenosis. Moderate-severe bilateral neural foraminal narrowing by uncovertebral joint osteophytes and facet arthropathy. C5-C6: More moderate disc space narrowing and degenerative endplate changes. Small disc-osteophyte complex. No central canal stenosis. Moderate-severe narrowing of the left neuroforamen by uncovertebral joint osteophytes. Mild-moderate narrowing of the right neuroforamen. C6-C7: Moderate-severe disc space narrowing and degenerative endplate changes. Broad-based disc-osteophyte complex slightly more prominent to the right of midline. No central canal stenosis. Moderate bilateral neural foraminal narrowing by a local which of joint osteophytes. C7-T1: Small left paracentral disc protrusion no significant mass effect on the spinal cord. Vertebrae: No subluxations. Multiple T1 hyperintense lesions within the vertebral bodies, many which are hyperintense on the STIR sequence. The largest is in the body of T1 and measures approximately 1.2 cm. Soft tissue: No evidence of paravertebral masses. Procedure Note Mateusz Romo MD - 04/11/2019 HISTORY:. Pain and paresthesias in right side of neck and arm. COMPARISON: None. TECHNIQUE: Exam performed on a 1.5 Aviva high-field MRI scanner.Sagittal T1, T2 and STIR, axial T2* gradient echo and 3-D bright fluidsequences were obtained. FINDINGS: Cervicomedullary junction: No significant abnormalities. Spinal cord: No findings suspicious for spinal cord lesions. Spinal cordnormal in configuration. C2-C3: No significant abnormalities. C3-C4: Small broad-based disc-osteophyte complex. No central canalstenosis. Moderate narrowing of the left neuroforamen by uncovertebraljoint osteophytes and mild facet arthropathy. C4-C5: Mild disc space narrowing and degenerative endplate changes.Broad-based disc protrusion associated with small osteophytes. Bilateralthickening of the ligamentum flavum. Mild flattening of the spinal cord.Mild-moderate central canal stenosis. Moderate-severe bilateral neuralforaminal narrowing by uncovertebral joint osteophytes and facetarthropathy. C5-C6: More moderate disc space narrowing and degenerative endplatechanges. Small disc-osteophyte complex. No central canal stenosis.Moderate-severe narrowing of the left neuroforamen by uncovertebral jointosteophytes. Mild-moderate narrowing of the right neuroforamen. C6-C7: Moderate-severe disc space narrowing and degenerative endplatechanges. Broad-based disc-osteophyte complex slightly more prominent tothe right of midline. No central canal stenosis. Moderate bilateral neuralforaminal narrowing by a local which of joint osteophytes. C7-T1: Small left paracentral disc protrusion no significant mass effecton the spinal cord. Vertebrae: No subluxations. Multiple T1 hyperintense lesions within thevertebral bodies, many which are hyperintense on the STIR sequence. Thelargest is in the body of T1 and measures approximately 1.2 cm. Soft tissue: No evidence of paravertebral masses. IMPRESSION: 1. Mild-moderate central canal stenosis at C4-C5. 2. Multilevel neural foraminal narrowing entirely due to osteophytes. Thisis moderate-severe bilaterally at C4-C5 and C5-C6 on the left. 3. Small left paracentral disc protrusion at C7-T1. 4. Degenerative disc and endplate changes, most prominent at C6-C7. 5. Multiple lesions within the vertebral bodies, likely hemangiomas. POS [id number] Kendrick LANGE IMG MR XSPECIALTY Fi nal Result documented in this encounter Visit Diagnoses Diagnosis Dorsalgia- Primary Pain in thoracic spine Dorsalgia Pain in thoracic spine documented in this encounter Additional Health Concerns Infection Onset Date Last Indicated Resolved Time CoV-Risk 03/31/2023 03/31/2023 04/11/2023 1:23 AM EST documented as of this encounter Care Teams College Associate Relationship Specialty Start Date End Date Kendrick Vargas PA PCP - General 09/21/17 04/05/23 Kendrick Vargas PA [address] [place] [phone] PCP - General Physician Signal Operator Linguist 04/06/23 documented as of this encounter Additional Source Comments The information contained in this document represents components of the legal health record. It is not the complete legal health record.[facility]
--- OUTSIDE RECORDS SUMMARY | 2025-03-27 10:56 | XMS_ITS | Encounter Summary ---
Author Organization [facility] Address [address] [facility] [address] [place] [phone] Phone Care Team Providers Care Pharmacy Innovation Assistant Name Role Phone Kendrick Vargas Primary Care Provid er Kendrick Vargas Primary Care Provid er Encounter Details Date Type Department Care Team (Late st Contact Info) Description 01/07/2021 Procedure Pass [address] [place] [address] Social History Tobacco Use Types Packs/Day Years [...] documented as of this encounter Care Teams Pharmacy Innovation Assistant Relationship Specialty Start Date End Date Kendrick Vargas PA PCP - General 09/21/17 04/05/23 Kendrick Vargas PA [address] [facility] [place] [id number] PCP - General Physician Outdoor Studies Director 04/06/23 documented as of this encounter Additional Source Comments The information contained in this document represents components of the legal health record. It is not the complete legal health record.[facility]
--- OUTSIDE RECORDS SUMMARY | 2025-03-27 10:56 | XMS_ITS | Encounter Summary ---
Author Organization [facility] Address [address] [facility] [address] [place] [phone] Phone Care Team Providers Care Printing Worker Supervisor Name Role Phone Kendrick Vargas Primary Care Provid er Kendrick Vargas Primary Care Provid er Encounter Details Date Type Department Care Team (Late st Contact Info) Description 05/17/2022 Procedure Pass [facility] Admitting Dept Virtual Department [address] [place] [address] Social History Tobacco Use Types Packs/Day Years Used Date Smoking Tobacco: Former Cigarettes Q uit: 1982 Smokeless Tobacco: Never Alcohol Use Standard Drinks/Week Comments Not Currently 0 (1 standard drink = 0.6 oz pur e alcohol) once a month - 1 drink Sex and Gender Information Value Date Recorded [...] documented as of this encounter Care Teams Printing Worker Supervisor Relationship Specialty Start Date End Date Kendrick Vargas PA PCP - General 09/21/17 04/05/23 Kendrick Vargas PA [address] [place] [address] PCP - General Physician Toys Inspector 04/06/23 documented as of this encounter Additional Source Comments The information contained in this document represents components of the legal health record. It is not the complete legal health record.[facility]
--- OUTSIDE RECORDS SUMMARY | 2025-03-27 10:56 | XMS_ITS | Encounter Summary ---
Author Organization [facility] Address [address] [facility] [address] [place] [phone] Phone Care Team Providers Care Fiction And Nonfiction Author Name Role Phone Kendrick Vargas Primary Care Provid er Kendrick Vargas Primary Care Provid er Encounter Details Date Type Department Care Team (Late st Contact Info) Description 04/04/2019 Procedure Pass [address] [place] [address] Social History Tobacco Use Types Packs/Day Years Used Date Smoking Tobacco: Never Assessed Sex and Gender Information Value Date Recorded Sex Assigned at Male 09/03/2022 10:37 AM EDT Legal Sex Male 7:26 PM EST Gender Identity Male 09/03/2022 10:37 AM EDT Sexual Orientation Choose not to disclose 2022 10:37 AM EDT documented as of this encounter Last Filed Vital Signs Vital Sign Reading Time Taken Comments Blood Pressure - - Pulse - - Temperature - - Respiratory Rate - - Oxygen Saturation - - Inhaled Oxygen Concentration - - Weight 104.3 kg (230 lb) 04/05/2019 5:33 PM EST Height 175.3 cm (5' 9 ) 04/05/2019 5:33 PM EST Body Mass Index 33.97 04/05/2019 5:33 PM EST documented in this encounter Plan of Treatment Not on file documented as of this encounter Visit Diagnoses Not on filedocumented in this encounter Additional Health Concerns Infection Onset Date Last Indicated Resolved Time CoV-Risk 03/31/2023 03/31/2023 04/11/2023 1:23 AM EST documented as of this encounter Care Teams Fiction And Nonfiction Author Relationship Specialty Start Date End Date Kendrick Vargas PA PCP - General 09/21/17 04/05/23 Kendrick Vargas PA [address] [place] [address] PCP - General Physician Branding Machine Tender 04/06/23 documented as of this encounter Additional Source Comments The information contained in this document represents components of the legal health record. It is not the complete legal health record.[facility]
== END 2025-03-27 10:04 | disposition home or self-care (01) ==
LOC: HO.HUSH 09:30
PROVIDERS: PCP Physician Assistant; Visit Provider Urology
DX: N40.1 Benign prostatic hyperplasia with lower urinary tract symptoms (principal); N13.8 Other obstructive and reflux uropathy; R39.14 Feeling of incomplete bladder emptying
CPT/HCPCS: 99214; G2211

== ENCOUNTER → 2025-03-27 09:30 | Outpatient (BNVA) | payer OTHER, SELFPAY | PROVIDERS: PCP Physician Assistant; Visit Provider Urology | DX: N40.1 Benign prostatic hyperplasia with lower urinary tract symptoms (principal); N13.8 Other obstructive and reflux uropathy; R39.14 Feeling of incomplete bladder emptying | CPT/HCPCS: 51798 ==